=== PATIENT | male | born 1995 | race Caucasian/White ===

== ENCOUNTER 2018-08-04 01:44 | Outpatient (RCR) | payer MEDICAID, SELFPAY ==
[2018-08-04] MEDS: Normal Saline Flush 10 ML SYR IVP (12:00)
[2018-08-04] MEDS: Heparin 500 UNITS/5 ML SYRINGE IV (12:05)
[2018-08-04 12:17] LABS: Absolute Basophil Count 0.03 k/cumm (0.0-0.2); Absolute Eosinophil Count 0.26 k/cumm (0.0-0.7); Absolute Lymphocyte Count 1.29 k/cumm (1.2-3.4); Absolute Monocyte Count 0.43 k/cumm (0.11-0.7); Absolute Neutrophil Count 1.68 k/cumm (1.2-6.7); Basophils % 0.8; HCT 43.6 % (40.0-50.0); HGB 14.8 g/dL (13.5-17.5); Mean Corp. HGB Concentration 33.9 g/dL (32.0-36.0); Mean Corpuscular Hemoglobin 31.6 pg (27.0-33.0); Mean Corpuscular Volume 93.2 fL (80-95); Mean Platelet Volume 8.9 fL (8.0-11.0); Monocytes % 11.7; Neutrophils % 45.5; Platelet Count 221 x1000/uL (130-400); RBC 4.68 m/cumm (4.50-6.00); White Blood Cell Count 3.69 k/cumm (4.4-10.8)
[2018-08-04 12:27] LABS: ALT 38 U/L (12-78); AST 31 U/L (15-37); Albumin 4.2 g/dL (3.4-5.0); Alkaline Phosphatase 95 U/L (46-116); Anion Gap 6.6 mmol/L (3-11); BUN 12 mg/dL (7-18); Bilirubin, Total 0.7 mg/dL (0.2-1.0); CO2 28.4 mmol/L (21.0-32.0); CREATININE 0.79 mg/dL (0.70-1.30); Calcium 8.8 mg/dL (8.5-10.1); Chloride 106 mmol/L (98-107); Glucose 99 mg/dL (70-100); Potassium 3.9 mmol/L (3.5-5.1); Sodium 141 mmol/L (136-145); Total Protein 7.8 g/dL (6.4-8.2)
[2018-08-04 14:10] LABS: Creatine Kinase 85 U/L (39-308)
== END 2018-08-07 23:59 | disposition home or self-care (01) ==
LOC: INF 01:44
PROVIDERS: PCP Pediatrics; Visit Provider Internal Medicine Medical Oncology
DX: C49.9 Malignant neoplasm of connective and soft tissue, unspecified (principal); Z45.2 Encounter for adjustment and management of vascular access device
CPT/HCPCS: 36591; 80053; 82550; 85025

== ENCOUNTER 2018-12-01 09:07 | Outpatient (RCR) | payer BC, MEDICARE, MEDICAID, SELFPAY ==
[2018-12-01 09:49] LABS: Abs Immature Grans 0.02 k/cumm (0.0-0.09); Absolute Basophil Count 0.03 k/cumm (0.0-0.2); Absolute Eosinophil Count 0.08 k/cumm (0.0-0.7); Absolute Lymphocyte Count 0.99 k/cumm (1.2-3.4); Absolute Monocyte Count 1.15 k/cumm (0.11-0.7); Basophils % 0.3; Eosinophils % 0.7; HGB 14.3 g/dL (13.5-17.5); Immature Grans % 0.2; Lymphocytes % 8.7; Mean Corpuscular Hemoglobin 30.6 pg (27.0-33.0); Mean Corpuscular Volume 89.9 fL (80-95); Mean Platelet Volume 8.9 fL (8.0-11.0); Monocytes % 10.1; Platelet Count 219 x1000/uL (130-400); RBC 4.67 m/cumm (4.50-6.00); RBC Distribution Width 12.3 % (11.8-14.1); White Blood Cell Count 11.43 k/cumm (4.4-10.8)
[2018-12-01] MEDS: Normal Saline Flush 10 ML SYR IVP (09:51)
[2018-12-01] MEDS: Heparin 500 UNITS/5 ML SYRINGE IV (09:51)
[2018-12-01 09:53] LABS: Absolute Neutrophil Count 9.14 k/cumm (1.2-6.7)
[2018-12-01 10:02] LABS: ALT 34 U/L (12-78); AST 33 U/L (15-37); Albumin 3.6 g/dL (3.4-5.0); Alkaline Phosphatase 111 U/L (46-116); Anion Gap 10.2 mmol/L (3-11); BUN 10 mg/dL (7-18); Bilirubin, Total 1.4 mg/dL (0.2-1.0); CO2 26.8 mmol/L (21.0-32.0); CREATININE 0.81 mg/dL (0.70-1.30); Calcium 9.3 mg/dL (8.5-10.1); Chloride 98 mmol/L (98-107); Glucose 95 mg/dL (70-100); Potassium 3.9 mmol/L (3.5-5.1); Sodium 135 mmol/L (136-145); Total Protein 8.2 g/dL (6.4-8.2)
== END 2018-12-08 23:59 | disposition home or self-care (01) ==
LOC: INF 09:07
PROVIDERS: PCP Pediatrics; Visit Provider Internal Medicine Hematology & Oncology
DX: C49.9 Malignant neoplasm of connective and soft tissue, unspecified (principal); Z45.2 Encounter for adjustment and management of vascular access device
CPT/HCPCS: 36591; 80053; 85025

== ENCOUNTER 2018-12-05 17:46 | Outpatient (REF) | payer BC, MEDICARE, MEDICAID, SELFPAY | END 2018-12-05 18:06 | LOC: LBN 17:46 | PROVIDERS: PCP Pediatrics; Visit Provider Pediatrics | DX: L03.116 Cellulitis of left lower limb (principal) | CPT/HCPCS: 87077; 87070; 87205 ==

== ENCOUNTER 2018-12-12 13:53 | Outpatient (REF) | payer BC, MEDICARE, MEDICAID, SELFPAY ==
[2018-12-12 14:23] LABS: Abs Immature Grans 0.05 k/cumm (0.0-0.09); Absolute Basophil Count 0.06 k/cumm (0.0-0.2); Absolute Lymphocyte Count 1.89 k/cumm (1.2-3.4); Absolute Monocyte Count 0.35 k/cumm (0.11-0.7); Absolute Neutrophil Count 4.06 k/cumm (1.2-6.7); Basophils % 0.9; Eosinophils % 4.5; HCT 39.5 % (40.0-50.0); HGB 12.9 g/dL (13.5-17.5); Immature Grans % 0.7; Lymphocytes % 28.2; Mean Corp. HGB Concentration 32.7 g/dL (32.0-36.0); Mean Corpuscular Hemoglobin 30.4 pg (27.0-33.0); Mean Corpuscular Volume 93.2 fL (80-95); Mean Platelet Volume 8.6 fL (8.0-11.0); Monocytes % 5.2; Neutrophils % 60.5; RBC 4.24 m/cumm (4.50-6.00); RBC Distribution Width 12.5 % (11.8-14.1); White Blood Cell Count 6.71 k/cumm (4.4-10.8)
[2018-12-12 14:28] LABS: Platelet Count 591 x1000/uL (130-400)
[2018-12-12 14:32] LABS: ALT 34 U/L (12-78); AST 31 U/L (15-37); Albumin 3.6 g/dL (3.4-5.0); Alkaline Phosphatase 123 U/L (46-116); Anion Gap 10.4 mmol/L (3-11); BUN 9 mg/dL (7-18); Bilirubin, Total 0.1 mg/dL (0.2-1.0); C-Reactive Protein 0.71 mg/dL (0.0-0.3); CO2 29.6 mmol/L (21.0-32.0); Calcium 9.2 mg/dL (8.5-10.1); Chloride 102 mmol/L (98-107); Glucose 108 mg/dL (70-100); Sodium 142 mmol/L (136-145); Total Protein 7.9 g/dL (6.4-8.2)
== END 2018-12-12 14:13 ==
LOC: LBN 13:53
PROVIDERS: PCP Pediatrics; Visit Provider Orthopaedic Surgery Adult Reconstructive Orthopaedic Surgery
DX: L03.116 Cellulitis of left lower limb (principal); L02.416 Cutaneous abscess of left lower limb; C49.4 Malignant neoplasm of connective and soft tissue of abdomen; Z79.2 Long term (current) use of antibiotics; Z92.21 Personal history of antineoplastic chemotherapy; R91.8 Other nonspecific abnormal finding of lung field
CPT/HCPCS: 80053; 85025; 86140

== ENCOUNTER 2018-12-19 12:41 | Outpatient (REF) | payer BC, MEDICARE, MEDICAID, SELFPAY ==
[2018-12-19 14:32] LABS: Absolute Basophil Count 0.07 k/cumm (0.0-0.2); Absolute Eosinophil Count 0.18 k/cumm (0.0-0.7); Absolute Lymphocyte Count 1.63 k/cumm (1.2-3.4); Absolute Monocyte Count 0.36 k/cumm (0.11-0.7); Absolute Neutrophil Count 1.92 k/cumm (1.2-6.7); Basophils % 1.7; Eosinophils % 4.3; HCT 40.3 % (40.0-50.0); HGB 13.1 g/dL (13.5-17.5); Lymphocytes % 39.2; Mean Corp. HGB Concentration 32.5 g/dL (32.0-36.0); Mean Corpuscular Hemoglobin 30.1 pg (27.0-33.0); Mean Corpuscular Volume 92.6 fL (80-95); Mean Platelet Volume 9.1 fL (8.0-11.0); Monocytes % 8.7; Neutrophils % 46.1; RBC 4.35 m/cumm (4.50-6.00); RBC Distribution Width 12.9 % (11.8-14.1); White Blood Cell Count 4.16 k/cumm (4.4-10.8)
[2018-12-19 14:48] LABS: Platelet Count 330 x1000/uL (130-400)
[2018-12-19 15:18] LABS: ALT 48 U/L (12-78); AST 41 U/L (15-37); Albumin 3.9 g/dL (3.4-5.0); Alkaline Phosphatase 119 U/L (46-116); Anion Gap 6.9 mmol/L (3-11); BUN 12 mg/dL (7-18); Bilirubin, Total 0.2 mg/dL (0.2-1.0); C-Reactive Protein 0.36 mg/dL (0.0-0.3); CO2 31.1 mmol/L (21.0-32.0); CREATININE 0.73 mg/dL (0.70-1.30); Calcium 9.6 mg/dL (8.5-10.1); Chloride 103 mmol/L (98-107); Glucose 89 mg/dL (70-100); Potassium 4.3 mmol/L (3.5-5.1); Sodium 141 mmol/L (136-145); Total Protein 8.1 g/dL (6.4-8.2)
== END 2018-12-19 13:01 ==
LOC: LBN 12:41
PROVIDERS: PCP Pediatrics; Visit Provider Internal Medicine Infectious Disease
DX: L03.116 Cellulitis of left lower limb (principal); L02.416 Cutaneous abscess of left lower limb
CPT/HCPCS: 80053; 85025; 86140

== ENCOUNTER 2019-01-02 15:33 | Outpatient (REF) | payer BC, MEDICARE, MEDICAID, SELFPAY ==
[2019-01-02 16:19] LABS: ALT 28 U/L (12-78); AST 30 U/L (15-37); Albumin 3.9 g/dL (3.4-5.0); Alkaline Phosphatase 112 U/L (46-116); Anion Gap 11.5 mmol/L (3-11); BUN 11 mg/dL (7-18); Bilirubin, Total 0.3 mg/dL (0.2-1.0); CO2 27.5 mmol/L (21.0-32.0); CREATININE 0.69 mg/dL (0.70-1.30); Calcium 8.5 mg/dL (8.5-10.1); Chloride 102 mmol/L (98-107); Glucose 98 mg/dL (70-100); Potassium 4.1 mmol/L (3.5-5.1); Sodium 141 mmol/L (136-145); Total Protein 7.9 g/dL (6.4-8.2)
[2019-01-02 17:12] LABS: Abs Immature Grans 0.01 k/cumm (0.0-0.09); Absolute Basophil Count 0.04 k/cumm (0.0-0.2); Absolute Lymphocyte Count 1.95 k/cumm (1.2-3.4); Absolute Monocyte Count 0.46 k/cumm (0.11-0.7); Absolute Neutrophil Count 2.08 k/cumm (1.2-6.7); Basophils % 0.8; Eosinophils % 8.1; Immature Grans % 0.2; Lymphocytes % 39.5; Mean Corp. HGB Concentration 33.3 g/dL (32.0-36.0); Mean Corpuscular Hemoglobin 29.9 pg (27.0-33.0); Mean Corpuscular Volume 89.6 fL (80-95); Mean Platelet Volume 9.6 fL (8.0-11.0); Monocytes % 9.3; Neutrophils % 42.1; Platelet Count 265 x1000/uL (130-400); RBC 4.69 m/cumm (4.50-6.00); RBC Distribution Width 12.9 % (11.8-14.1); White Blood Cell Count 4.94 k/cumm (4.4-10.8)
== END 2019-01-02 15:53 ==
LOC: LBN 15:33
PROVIDERS: PCP Pediatrics; Visit Provider Internal Medicine Infectious Disease
DX: L03.116 Cellulitis of left lower limb (principal); L02.416 Cutaneous abscess of left lower limb
CPT/HCPCS: 80053; 85025; 86140

== ENCOUNTER 2019-01-09 13:40 | Outpatient (REF) | payer BC, MEDICARE, MEDICAID, SELFPAY ==
[2019-01-09 14:42] LABS: Absolute Basophil Count 0.03 k/cumm (0.0-0.2); Absolute Eosinophil Count 0.32 k/cumm (0.0-0.7); Absolute Lymphocyte Count 1.71 k/cumm (1.2-3.4); Absolute Monocyte Count 0.54 k/cumm (0.11-0.7); Absolute Neutrophil Count 2.14 k/cumm (1.2-6.7); Basophils % 0.6; Eosinophils % 6.8; HCT 40.3 % (40.0-50.0); HGB 13.7 g/dL (13.5-17.5); Lymphocytes % 36.1; Mean Corpuscular Hemoglobin 30.2 pg (27.0-33.0); Mean Corpuscular Volume 88.8 fL (80-95); Mean Platelet Volume 9.1 fL (8.0-11.0); Monocytes % 11.4; Neutrophils % 45.1; Platelet Count 250 x1000/uL (130-400); RBC 4.54 m/cumm (4.50-6.00); RBC Distribution Width 12.8 % (11.8-14.1); White Blood Cell Count 4.74 k/cumm (4.4-10.8)
[2019-01-09 15:40] LABS: ALT 29 U/L (12-78); AST 26 U/L (15-37); Alkaline Phosphatase 99 U/L (46-116); Anion Gap 8.9 mmol/L (3-11); BUN 10 mg/dL (7-18); Bilirubin, Total 0.3 mg/dL (0.2-1.0); C-Reactive Protein 0.27 mg/dL (0.0-0.3); CO2 29.1 mmol/L (21.0-32.0); CREATININE 0.67 mg/dL (0.70-1.30); Calcium 9.1 mg/dL (8.5-10.1); Chloride 104 mmol/L (98-107); Glucose 93 mg/dL (70-100); Potassium 3.9 mmol/L (3.5-5.1); Sodium 142 mmol/L (136-145); Total Protein 7.5 g/dL (6.4-8.2)
== END 2019-01-09 14:00 ==
LOC: LBN 13:40
PROVIDERS: PCP Pediatrics; Visit Provider Internal Medicine Infectious Disease
DX: L03.116 Cellulitis of left lower limb (principal); L02.416 Cutaneous abscess of left lower limb; R91.8 Other nonspecific abnormal finding of lung field; Z79.2 Long term (current) use of antibiotics; Z92.21 Personal history of antineoplastic chemotherapy
CPT/HCPCS: 80053; 85025; 86140

== ENCOUNTER 2019-01-16 12:36 | Outpatient (REF) | payer BC, MEDICARE, MEDICAID, SELFPAY ==
[2019-01-16 14:21] LABS: Abs Immature Grans 0.01 k/cumm (0.0-0.09); Absolute Basophil Count 0.03 k/cumm (0.0-0.2); Absolute Eosinophil Count 0.22 k/cumm (0.0-0.7); Absolute Lymphocyte Count 1.55 k/cumm (1.2-3.4); Absolute Monocyte Count 0.49 k/cumm (0.11-0.7); Absolute Neutrophil Count 1.88 k/cumm (1.2-6.7); Basophils % 0.7; Eosinophils % 5.3; HCT 39.6 % (40.0-50.0); HGB 13.3 g/dL (13.5-17.5); Immature Grans % 0.2; Lymphocytes % 37.1; Mean Corp. HGB Concentration 33.6 g/dL (32.0-36.0); Mean Corpuscular Volume 89.2 fL (80-95); Mean Platelet Volume 9.5 fL (8.0-11.0); Monocytes % 11.7; Platelet Count 239 x1000/uL (130-400); RBC 4.44 m/cumm (4.50-6.00); RBC Distribution Width 13.2 % (11.8-14.1); White Blood Cell Count 4.18 k/cumm (4.4-10.8)
[2019-01-16 14:35] LABS: ALT 28 U/L (12-78); AST 33 U/L (15-37); Albumin 3.9 g/dL (3.4-5.0); Alkaline Phosphatase 100 U/L (46-116); Anion Gap 8.8 mmol/L (3-11); BUN 11 mg/dL (7-18); Bilirubin, Total 0.3 mg/dL (0.2-1.0); C-Reactive Protein 0.59 mg/dL (0.0-0.3); CO2 28.2 mmol/L (21.0-32.0); CREATININE 0.64 mg/dL (0.70-1.30); Calcium 8.7 mg/dL (8.5-10.1); Chloride 103 mmol/L (98-107); Glucose 117 mg/dL (70-100); Potassium 3.9 mmol/L (3.5-5.1); Sodium 140 mmol/L (136-145); Total Protein 7.3 g/dL (6.4-8.2)
== END 2019-01-16 12:56 ==
LOC: LBN 12:36
PROVIDERS: PCP Pediatrics; Visit Provider Internal Medicine Infectious Disease
DX: L03.116 Cellulitis of left lower limb (principal); L02.416 Cutaneous abscess of left lower limb; Z79.2 Long term (current) use of antibiotics; Z92.21 Personal history of antineoplastic chemotherapy; R91.8 Other nonspecific abnormal finding of lung field
CPT/HCPCS: 80053; 85025; 86140

== ENCOUNTER 2019-05-29 01:19 | Outpatient (RCR) | payer BC, MEDICARE, MEDICAID, SELFPAY ==
[2019-05-25] MEDS: Normal Saline Flush 10 ML SYR IVP (13:36)
[2019-05-25 13:57] LABS: RBC 4.44 m/cumm (4.50-6.00)
[2019-05-25 13:58] LABS: HCT 39.2 % (40.0-50.0); HGB 13.5 g/dL (13.5-17.5); Mean Corp. HGB Concentration 34.4 g/dL (32.0-36.0); Mean Corpuscular Hemoglobin 30.4 pg (27.0-33.0); Mean Corpuscular Volume 88.3 fL (80-95); RBC Distribution Width 19.3 % (11.8-14.1)
[2019-05-25 14:17] LABS: ALT 166 U/L (12-78); AST 52 U/L (15-37); Albumin 3.1 g/dL (3.4-5.0); Alkaline Phosphatase 203 U/L (46-116); Anion Gap 10.4 mmol/L (3-11); BUN 20 mg/dL (7-18); Bilirubin, Total 0.4 mg/dL (0.2-1.0); CO2 26.6 mmol/L (21.0-32.0); Calcium 9.1 mg/dL (8.5-10.1); Chloride 102 mmol/L (98-107); Glucose 114 mg/dL (70-100); Potassium 4.1 mmol/L (3.5-5.1); Sodium 139 mmol/L (136-145); Total Protein 6.7 g/dL (6.4-8.2)
[2019-05-25 14:35] LABS: Platelet Count 43 x1000/uL (130-400)
[2019-05-25 14:37] LABS: Anisocytosis 1+; Diff Comment Manual Differential; Macrocytosis 1+; Polychromasia Present
[2019-05-25 14:38] LABS: Absolute Lymphocyte Count 0.93 k/cumm (1.2-3.4); Absolute Monocyte Count 0.21 k/cumm (0.11-0.7); Absolute Neutrophil Count 5.78 k/cumm (1.2-6.7); White Blood Cell Count 7.13 k/cumm (4.4-10.8)
[2019-05-25 14:43] LABS: Nucleated RBC 41 /100WBC
[2019-05-29] MEDS: Normal Saline Flush 10 ML SYR IVP (10:21)
[2019-05-29] MEDS: Heparin 500 UNITS/5 ML SYRINGE IV (10:21)
[2019-05-29 10:27] LABS: Abs Immature Grans 1.97 k/cumm (0.0-0.09); HCT 39.5 % (40.0-50.0); HGB 13.2 g/dL (13.5-17.5); Mean Corp. HGB Concentration 33.4 g/dL (32.0-36.0); Mean Corpuscular Hemoglobin 30.4 pg (27.0-33.0); Mean Platelet Volume 10.9 fL (8.0-11.0); RBC 4.34 m/cumm (4.50-6.00); RBC Distribution Width 20.9 % (11.8-14.1); White Blood Cell Count 20.61 k/cumm (4.4-10.8)
[2019-05-29 10:40] LABS: ALT 161 U/L (12-78); AST 52 U/L (15-37); Albumin 3.1 g/dL (3.4-5.0); Alkaline Phosphatase 246 U/L (46-116); BUN 18 mg/dL (7-18); Bilirubin, Total 0.3 mg/dL (0.2-1.0); CREATININE 0.54 mg/dL (0.70-1.30); Calcium 8.6 mg/dL (8.5-10.1); Chloride 102 mmol/L (98-107); Glucose 150 mg/dL (70-100); Potassium 3.4 mmol/L (3.5-5.1); Sodium 139 mmol/L (136-145); Total Protein 6.6 g/dL (6.4-8.2)
[2019-05-29 10:54] LABS: Absolute Lymphocyte Count 3.09 k/cumm (1.2-3.4); Absolute Neutrophil Count 14.84 k/cumm (1.2-6.7); Platelet Count 114 x1000/uL (130-400)
[2019-05-29 10:55] LABS: Absolute Monocyte Count 1.24 k/cumm (0.11-0.7); Nucleated RBC 4 /100WBC
[2019-05-29 10:56] LABS: Anisocytosis 2+; Diff Comment Manual Differential; Hypochromasia 2+; Polychromasia Present
== END 2019-06-07 23:59 | disposition home or self-care (01) ==
LOC: INF 01:19
PROVIDERS: PCP Pediatrics; Visit Provider Internal Medicine Hematology & Oncology
DX: C49.22 Malignant neoplasm of connective and soft tissue of left lower limb, including hip (principal); Z45.2 Encounter for adjustment and management of vascular access device
CPT/HCPCS: 36591; 80053; 85025

== ENCOUNTER 2019-06-13 17:29 | Observation (INO) | payer BC, MEDICARE, MEDICAID, SELFPAY ==
[2019-06-13] VITALS (34 sets, daily range): BP systolic 118–134; BP diastolic 57–82; PULSE 116–143; RESP 15–44; TEMP 37.1–37.7; O2SAT 92–95
--- NOTE | 2019-06-13 18:41 | ED.GENADUL_ITS ---
Discharge Plan Disposition Patient Disposition: [facility] INPATIENT Condition: Poor Discharge Details Chief Complaint: Fever Clinical Impression: Tachycardia, Fever, Metastasis Primary Care Provider: Eliseo Barraza ED Provider: Prema Pope Home Meds and New Rx's Prescriptions: No Action acetaminophen 500 mg tablet 1,000 mg PO TID PRNRF: 0 ondansetron HCl 8 mg tablet 8 mg PO BID RF: 0 fluconazole 200 mg Tablet 200 mg PO DAILY RF: 0 dexamethasone 1 mg Tablet 1 mg PO BID RF: 0 memantine 10 mg Tablet 10 mg PO BID RF: 0 Medical Decision Making Patient is a 24 year old male, accompanied by his mother, with c/c of fever. 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 Patient is currently undergoing chemotherapy, receives treatment every 21 days. Last received chemo one week ago. When labs were checked last patient was not noted to be neutropenic. He rerports that this evening he felt warm but otherwise at baseline. States that he has been fatigued but that this is baseline and unchaged. Denies KEYES, visual changes, back pain, CP, SOB, abdominal pain, change in urinary or bowel habits. Last known infection was to site of AKA, reports no pain in this area at this time, has not noted chagne in skin to suggest infection. Last infection to this area was in December 2018. Mother contacted oncology at [facility] who advised that they seek care urgently with temp over 100.4. Concerned for neutropenic fever. Patient is without evidence of infection on exam. Appears otherwise well. Lungs clear, abdomen benign, no nuchal rigiditiy. Patient tachycardic at 117, reports feeling nervous. Temp 37.7. Will give tylenol as he reports he is feeling warm. CXR reviewed by radiologist: FINDINGS: Tubes, catheters and devices: Port-A-Cath in place with the tip in the superior vena cava. Lungs: Innumerable large bilateral mass lesions involving both lung claros. Lung volumes are low. Pleural space: Unremarkable. No pleural effusion. No pneumothorax. Heart/Mediastinum: Unremarkable. No cardiomegaly. Bones/joints: Unremarkable. IMPRESSION: Multiple large mass lesions involving both lung claros consistent with metastatic disease. Reevaluated the patient after labs and imaging results returned. He is noted to have a BP in the 130s with O2 at 93%. He denies dyspnea, pleuritic pain, calf pain. However, concerned for possible PE, will obtain CT. No calf tenderness, no edema in RLE. Labs significant for platelet count 114, this is baseline for the patient. WBC 6.85. Neutrophiles 58%. Anion gap 12.7. AST, ALT and alk phos elevated, this is typical for the patient. UA significant ofr trace blood. No evidence of infection. CT reviewed by radiologist: FINDINGS: Tubes, catheters and devices: Left PICC line in place with the tip in the right atrium. Consider repositioning the tip of the catheter. Pulmonary arteries: No evidence for pulmonary embolus. Aorta: Unremarkable. No aortic aneurysm. No aortic dissection. Lungs: Innumerable bilateral mass lesions filling the chest cavity. Several lesions measure greater than 10 cm. Pleural space: No pneumothorax. No pleural effusion. Heart: Unremarkable. No cardiomegaly. No pericardial effusion. Liver: Hepatic steatosis. Spleen: Mass lesions involving the spleen consistent with metastatic disease. Lymph nodes: Unremarkable. No enlarged lymph nodes. Bones/joints: Unremarkable. No acute fracture. Soft tissues: Gynecomastia.. IMPRESSION: 1. Extensive metastatic disease involving the lungs and spleen. 2. No evidence for pulmonary emboli. 3. Consider repositioning the central catheter tip. Consulted with Dr. Chan at [facility] who advised admission. She advised holding off on antibiotics for now. Advised obtaining urine culture, blood culture and viral swab. She advised admission and continuing to monitor his tachycardia, continuing with IV fluids. Images pushed to [facility]. EKG reviewed by Dr. Fisher. Sinus tachycardia with rate 126, no evidence of ischemic changes. Spoke with patient regarding admission, he is upset about this but agreeable. He is receiving further fluids. Continues to be tachycardic in the 120s. Plan to consult with hospitalist. Spoke with Dr. Steele who agrees to admission for continued monitoring and Iv hydration. HPI General Mode of arrival: ambulatory (uses crutches, s/p left AKA) . Date/Time Provider Initiated Documentation: 06/13/19 18:40 . Limitations to Documentation: no limitations . Information obtained by: patient, family (accompanied by mother) and RN notes reviewed . History of Present Illness 24 year old M presents to the emergency department with the chief complaint of fever, described as mild (report t max 100.8), Patient started experiencing this hour(s) and it has been constant. No relieving factors improve symptom(s), No exacerbating factors reported . Patient notes fever/chills (feels warm) and other (fatigue); denies confusion, chest pain, cough, diaphoresis, headaches, loss of appetite, malaise, nausea/vomiting, rash, seizure, shortness of breath, syncope and weakness. Patient did receive the following treatments prior to arrival, none Related Data Home Medications Medication Instructions Recorded Confirmed acetaminophen 500 mg tablet 1,000 mg PO TID PRN tab 08/09/18 06/13/19 ondansetron HCl 8 mg tablet 8 mg PO BID 04/11/19 06/13/19 dexamethasone 1 mg PO BID 06/13/19 06/13/19 fluconazole 200 mg PO DAILY 06/13/19 06/13/19 memantine 10 mg PO BID 06/13/19 06/13/19 Allergies Allergy/AdvReac Type Severity Reaction Status Date / Time shellfish derived Allergy Intermediate Hives Verified 06/13/19 17:41 prochlorperazine AdvReac jittery Verified 06/13/19 17:41 General Stated Complaint: Fever CONRAD: 3 Review of Systems Constitutional Reports as per HPI, Denies chills, Reports fatigue, Denies fever(s), Denies headache(s), Denies lethargy and Denies poor appetite Eyes Denies change in vision ENT Denies dizziness and Denies headache(s) Cardiovascular Reports as per HPI, Denies chest pain, Denies pedal edema, Denies radiating jaw, neck or arm pain, Denies palpitations, Denies dyspnea and Denies dyspnea on exertion Respiratory Reports as per HPI, Denies chest congestion, Denies cough, Denies pain on inspiration, Denies pain with cough, Denies dyspnea, Denies dyspnea on exertion and Denies wheezing Gastrointestinal Reports as per HPI, Denies abdominal pain, Denies diarrhea, Denies nausea and Denies vomiting Genitourinary Denies system reviewed and no additional complaints, except as docu (denies change in urinary habits) Musculoskeletal Reports as per HPI and Denies back pain Integumentary/Breasts Reports as per HPI and Denies rash Neurologic Reports as per HPI, Denies dizziness and Denies headache(s) Endocrine Reports fatigue and Denies palpitations Allergic/Immunologic Denies wheezing [facility] Medical History Achilles tendon contracture (Acute) Pulmonary nodules (Acute) Synovial sarcoma (Acute 12/12/14) Surgical History H/O arthroscopic knee surgery (Chronic) History of lung biopsy (Acute) Family History Mother Non-Hodgkin lymphoma in remission Social History Smoking/Tobacco Use Status: Never Drug use: Never Adopted: No Caregiver/Support person: Yes Foster care: No Household members: family Housing: house Number of Children: 0 Sexually active: No Do you think of yourself as: straight/heterosexual Exam Const General: cooperative, healthy appearing, comfortable, no acute distress and well developed Nutritional Appearance: well nourished and overweight Orientation: alert, awake and oriented x3 HENMT Head: normal to inspection Ears: hearing grossly normal bilaterally Mouth: moist mucous membranes Chest Chest: normal inspection of the chest, normal palpation of entire chest wall and no crepitus Resp Effort & Inspection: normal respiratory effort, able to speak in complete sentences and no respiratory distress Auscultation: clear to auscultation bilaterally, no rales, no rhonchi and no wheezes Cardio Rate: regular rate Rhythm: regular rhythm Heart Sounds: S1 normal and S2 normal GI Inspection: normal to inspection, no edema, non-distended and obesity Palpation: soft, no hepatosplenomegaly, not firm, no guarding, not rigid and nontender Auscultation: normal bowel sounds Back/Spine/Pelvis Back: no CVA tenderness Thoracic/Lumbar Spine: thoracic and lumbar spine normal to inspection Skin General skin exam: no rashes or lesions noted Trauma: no lacerations or abrasions Neuro General: alert, awake and oriented x3 Cognition: normal cognition Speech: speech normal Gait: normal gait Extrem General: normal to inspection, normal capillary refill, no pedal edema, no calf tenderness and other (patient s/p AKA left side, stump without findings of infection) Psych Appearance: grossly normal and well kempt Mental Status: mental status grossly normal Speech and Movement: speech and movement normal Course Vital Signs Temperature 37.7 C H 06/13/19 17:37 Pulse 117 H 06/13/19 17:37 Respiratory Rate 16 06/13/19 17:37 Blood Pressure 118/73 06/13/19 17:37 Pulse Oximetry 95 06/13/19 17:37 Temperature 37.7 C H 06/13/19 17:37 Temperature Source Oral 06/13/19 17:37 Pulse 117 H 06/13/19 17:37 Respiratory Rate 16 06/13/19 17:37 Respiratory Effort Non-Labored 06/13/19 17:37 Blood Pressure 118/73 06/13/19 17:37 Blood Pressure Position Sitting 06/13/19 17:37 Pulse Oximetry 95 06/13/19 17:37 Oxygen Delivery Method Room Air 06/13/19 17:37 Oxygen Flow Rate 0 06/13/19 17:37 Pain Level 0 06/13/19 17:37
[2019-06-13 19:41] LABS: Lactate-non-spesis 1.4 mmol/l (0.6-1.4)
[2019-06-13] MEDS: Normal Saline 1,000 ML 1000 ML IV ×2 (19:42→22:21)
[2019-06-13 19:46] LABS: Abs Immature Grans 0.52 k/cumm (0.0-0.09); HCT 39.1 % (40.0-50.0); HGB 13.4 g/dL (13.5-17.5); Mean Corp. HGB Concentration 34.3 g/dL (32.0-36.0); Mean Corpuscular Hemoglobin 31.9 pg (27.0-33.0); Mean Corpuscular Volume 93.1 fL (80-95); Mean Platelet Volume 10.4 fL (8.0-11.0); RBC Distribution Width 22.7 % (11.8-14.1)
--- NOTE | 2019-06-13 19:50 | DI.RAD_ITS ---
SYMPTOM/DIAGNOSIS: FEVER, H/O LUNG BX AND CARCINOMA PA AND LATERAL CHEST: There are no prior comparison exams. The patient has a history of synovial cell carcinoma. There are numerous pulmonary metastases. The lungs are not well inflated. No effusions are seen. The heart size is within normal limits. A port is noted over the left upper chest with the tip in the right atrium. IMPRESSION: Numerous bilateral pulmonary metastases.
[2019-06-13] MEDS: Acetaminophen 500 MG TAB 1000 MG PO (20:06)
[2019-06-13 20:08] LABS: ALT 147 U/L (12-78); AST 46 U/L (15-37); Albumin 3.5 g/dL (3.4-5.0); Alkaline Phosphatase 219 U/L (46-116); Anion Gap 12.7 mmol/L (3-11); BUN 17 mg/dL (7-18); Bilirubin, Total 0.4 mg/dL (0.2-1.0); CO2 24.3 mmol/L (21.0-32.0); CREATININE 0.68 mg/dL (0.70-1.30); Calcium 8.4 mg/dL (8.5-10.1); Chloride 99 mmol/L (98-107); Glucose 100 mg/dL (70-100); Potassium 3.8 mmol/L (3.5-5.1); Sodium 136 mmol/L (136-145); Total Protein 6.7 g/dL (6.4-8.2)
--- NOTE | 2019-06-13 20:32 | DI.VRAD_ITS ---
EXAM: XR Chest, 2 Views EXAM DATE/TIME: 06/13/2019 6:41 PM CLINICAL HISTORY: 24 years old, male; Fever; Prior surgery; Surgery type: Biopsy; Patient HX: HX of synovial sarcoma metastases to lungs TECHNIQUE: Imaging protocol: XR of the chest, 2 views. COMPARISON: No relevant prior studies available. FINDINGS: Tubes, catheters and devices: Port-A-Cath in place with the tip in the superior vena cava. Lungs: Innumerable large bilateral mass lesions involving both lung claros. Lung volumes are low. Pleural space: Unremarkable. No pleural effusion. No pneumothorax. Heart/Mediastinum: Unremarkable. No cardiomegaly. Bones/joints: Unremarkable. IMPRESSION: Multiple large mass lesions involving both lung claros consistent with metastatic disease. Dictated and Authenticated by: Kassandra Dyer MD. Ordering:KRYSTA Lloyd MD
[2019-06-13 20:35] LABS: Absolute Monocyte Count 1.37 k/cumm (0.11-0.7); Absolute Neutrophil Count 3.97 k/cumm (1.2-6.7); White Blood Cell Count 6.85 k/cumm (4.4-10.8)
[2019-06-13 20:40] LABS: Absolute Lymphocyte Count 1.37 k/cumm (1.2-3.4); Atypical Lymphocytes % 2; Platelet Count 114 x1000/uL (130-400)
[2019-06-13 20:41] LABS: Nucleated RBC 4 /100WBC
[2019-06-13 20:42] LABS: Anisocytosis 3+; Howell-Jolly Bodies Present; Polychromasia Present
[2019-06-13 20:43] LABS: Diff Comment Manual Differential
[2019-06-13 21:09] LABS: Bilirubin Negative (Negative); Blood Trace-lysed (Negative); Clarity Clear (Clear); Glucose Negative (Negative); Ketones Negative (Negative); Leukocyte Esterase Negative (Negative); Nitrite Negative (Negative); Urobilinogen 0.2 EU/dL (Up TO 0.2)
--- NOTE | 2019-06-13 21:16 | DI.CT_ITS ---
SYMPTOM/DIAGNOSIS: FEVER, TACHYCARDIAC, H/O CANCER PE CHEST CT: CT angiography was performed with multi slice acquisition and multi planar and 3D reconstruction. There are no pulmonary emboli or evidence of aortic dissection. There are innumerable masses seen throughout both lungs. The patient has a history of synovial cell carcinoma. The largest metastatic lesions are seen at the right lung base, measuring nearly 10 cm. in size. The masses show calcification. No pleural or pericardial effusions or adenopathy is seen. No pulmonary infiltrates or pulmonary edema is seen. The liver is enlarged and shows fatty infiltration. There are numerous low density lesions in the spleen, also consistent with metastases. There are numerous enhancing nodules seen around the pancreas. A PICC line is seen with the tip terminating in the upper right atrium. No bony metastases or compression fractures are seen. IMPRESSION: Innumerable lung metastases, greatest at the right lung base. There is also apparent splenic metastases and likely metastases around the spleen.
[2019-06-13 21:40] LABS: Bacteria Negative HPF (Negative); C & S Indicated? No; Casts Negative LPF (Negative); Crystals Negative HPF (Negative); Epithelial Cells Negative HPF (Negative); Mucus Negative (Negative); Other Cells Negative (Negative); RBC 0-2 (0-2); WBC 0-2 HPF (0-5)
[2019-06-13 21:45] LABS: D-Dimer 2721 ng/mlFEU (<500)
--- NOTE | 2019-06-13 22:01 | DI.VRAD_ITS ---
EXAM: CT Angiography Chest With Contrast EXAM DATE/TIME: 06/13/2019 9:17 PM CLINICAL HISTORY: 24 years old, male; Other: Tachycardic, cancer patient TECHNIQUE: Imaging protocol: Axial computed tomographic angiography images of the chest with intravenous contrast using CT angiography protocol. Coronal and sagittal reformatted images were created and reviewed. 3D rendering: MIP reconstructed images were created and reviewed. Radiation optimization: All CT scans at this facility use at least one of these dose optimization techniques: automated exposure control; mA and/or kV adjustment per patient size (includes targeted exams where dose is matched to clinical indication); or iterative reconstruction. Contrast material: OMNIPAQUE 350;Contrast volume: 100 ml;Contrast route: IV; COMPARISON: CR XR CHEST 2V PA LATERAL 04/15/2019 19:44 FINDINGS: Tubes, catheters and devices: Left PICC line in place with the tip in the right atrium. Consider repositioning the tip of the catheter. Pulmonary arteries: No evidence for pulmonary embolus. Aorta: Unremarkable. No aortic aneurysm. No aortic dissection. Lungs: Innumerable bilateral mass lesions filling the chest cavity. Several lesions measure greater than 10 cm. Pleural space: No pneumothorax. No pleural effusion. Heart: Unremarkable. No cardiomegaly. No pericardial effusion. Liver: Hepatic steatosis. Spleen: Mass lesions involving the spleen consistent with metastatic disease. Lymph nodes: Unremarkable. No enlarged lymph nodes. Bones/joints: Unremarkable. No acute fracture. Soft tissues: Gynecomastia.. IMPRESSION: 1. Extensive metastatic disease involving the lungs and spleen. 2. No evidence for pulmonary emboli. 3. Consider repositioning the central catheter tip. Dictated and Authenticated by: Kassandra Dyer MD. Ordering:KRYSTA Lloyd MD
[2019-06-13] MEDS: Dexamethasone 1 MG TAB PO (22:15)
[2019-06-13] MEDS: Memantine 5 MG TAB 10 MG PO (22:43)
--- NOTE | 2019-06-13 23:10 | HPE_ITS ---
Date of service: 06/13/19 Time of Service: 23:10 Assessment and Plan (1) Fever: Current visit: Yes Status: Acute Fever, probably infectious, source not apparent. I have some concern about possible line sepsis given otherwise negative w/u and would consider empiric Vanco pending culture results. However patient is adamant he does not want any antibiotics at this point and will defer. Otherwise will continue usual meds as is. History of Present Illness Chief Complaint: fever Narrative: 24 male with h/o sarcoma, s/p left AKA, metastatic to lung, undergoing chemo (last one week [employer]) -- here with one day of fever. No other symptoms whatsoever except for baseline fatigue. In ER work up failed to reveal a source of fever, cultures were obtained, and patient was not neutropenic. CT chest shows extensive mets, no PE. Oncology advised observe overnight, no antibiotics unless culture +. Review of Systems Review of Systems All systems reviewed & are unremarkable except as noted in HPI and below PFSH Medical History Achilles tendon contracture (Acute) Pulmonary nodules (Acute) Synovial sarcoma (Acute 12/12/14) Surgical History H/O arthroscopic knee surgery (Chronic) History of lung biopsy (Acute) Family History Mother Non-Hodgkin lymphoma in remission Social History Smoking/Tobacco Use Status: Never Drug use: Never Adopted: No Caregiver/Support person: Yes Foster care: No Household members: family Housing: house Number of Children: 0 Sexually active: No Do you think of yourself as: straight/heterosexual Meds Home Medications Medication Instructions Recorded Confirmed Type acetaminophen 500 mg tablet 1,000 mg PO TID PRN tab 08/09/18 06/13/19 History ondansetron HCl 8 mg tablet 8 mg PO BID 04/11/19 06/13/19 History dexamethasone 1 mg PO BID 06/13/19 06/13/19 History fluconazole 200 mg PO DAILY 06/13/19 06/13/19 History memantine 10 mg PO BID 06/13/19 06/13/19 History Allergies Allergy/AdvReac Type Severity Reaction Status Date / Time shellfish derived Allergy Intermediate Hives Verified 06/13/19 17:41 prochlorperazine AdvReac jittery Verified 06/13/19 17:41 Exam Narrative Exam Narrative: Tmax. 37.7, 126/76, pulse 115-135, RR 22. HEENT unremarkable; neck supple; lungs clear; heart tachy/regular, abdomen soft NT; no scrotal redness or swelling; rectal deferred; extr s/p left AKA; skin no rash; neuro non-focal Results Labs : 06/13/19 19:35 06/13/19 19:35 Laboratory Results - last 24 hr 06/13/19 06/13/19 06/13/19 19:35 19:35 19:35 WBC 6.85 RBC 4.20 L Hgb 13.4 L Hct 39.1 L MCV 93.1 MCH 31.9 MCHC 34.3 RDW 22.7 H Plt Count 114 L MPV 10.4 Immature Gran % See Differential Neutrophils % 58.0 Lymphocytes % 18.0 Atypical Lymphs % 2 Monocytes % 20.0 Eosinophils % 0.0 Basophils % 0.0 Metamyelocytes % 2.0 Absolute Neutrophils 3.97 Absolute Lymphocytes 1.37 Absolute Monocytes 1.37 H Absolute Eosinophils 0.00 Absolute Basophils 0.00 Nucleated RBCs 4 Differential Comment Manual differential RBC Morphology See below Polychromasia Present Anisocytosis 3+ [place] Bodies Present D-Dimer Sodium 136 Potassium 3.8 Chloride 99 Carbon Dioxide 24.3 Anion Gap 12.7 H BUN 17 Creatinine 0.68 L Estimated GFR/1.73 m2 >= 60.00 Glucose 100 Lactate 1.4 Calcium 8.4 L Magnesium 2.0 Total Bilirubin 0.4 AST 46 H ALT 147 H Alkaline Phosphatase 219 H Total Protein 6.7 Albumin 3.5 Urine Color Urine Clarity Urine pH Ur Specific [place] Urine Protein Urine Ketones Urine Blood Urine Nitrite Urine Bilirubin Urine Urobilinogen Ur Leukocyte Esterase Urine RBC Urine WBC Ur Epithelial Cells Urine Crystals Urine Bacteria Urine Casts Urine Mucus Urine Other Ur Culture Indicated? Urine Glucose 06/13/19 06/13/19 19:35 20:40 WBC RBC Hgb Hct MCV MCH MCHC RDW Plt Count MPV Immature Gran % Neutrophils % Lymphocytes % Atypical Lymphs % Monocytes % Eosinophils % Basophils % Metamyelocytes % Absolute Neutrophils Absolute Lymphocytes Absolute Monocytes Absolute Eosinophils Absolute Basophils Nucleated RBCs Differential Comment RBC Morphology Polychromasia Anisocytosis [place] Bodies D-Dimer 2721 H Sodium Potassium Chloride Carbon Dioxide Anion Gap BUN Creatinine Estimated GFR/1.73 m2 Glucose Lactate Calcium Magnesium Total Bilirubin AST ALT Alkaline Phosphatase Total Protein Albumin Urine Color Yellow Urine Clarity Clear Urine pH 5.0 Ur Specific [place] 1.020 Urine Protein Negative Urine Ketones Negative Urine Blood Trace-lysed H Urine Nitrite Negative Urine Bilirubin Negative Urine Urobilinogen 0.2 Ur Leukocyte Esterase Negative Urine RBC 0-2 Urine WBC 0-2 Ur Epithelial Cells Negative Urine Crystals Negative Urine Bacteria Negative Urine Casts Negative Urine Mucus Negative Urine Other Negative Ur Culture Indicated? No Urine Glucose Negative Last Vital Signs Temp 37.4 C 06/13/19 20:15 Pulse 117 H 06/13/19 20:16 Resp 22 06/13/19 21:20 BP 126/76 06/13/19 20:16 Pulse Ox 93 L 06/13/19 21:20
[2019-06-14] VITALS (15 sets, daily range): BP systolic 120–143; BP diastolic 70–89; PULSE 103–122; RESP 16–18; TEMP 36.4–38.1; O2SAT 92–94
[2019-06-14] MEDS: Acetaminophen 325 MG TAB 650 MG PO ×4 (03:51→22:21)
[2019-06-14] MEDS: Fluconazole 100 MG TAB 200 MG PO ×2 (03:53→22:20)
[2019-06-14 07:21] LABS: HCT 36.3 % (40.0-50.0); HGB 12.2 g/dL (13.5-17.5); Mean Corp. HGB Concentration 33.6 g/dL (32.0-36.0); Mean Corpuscular Hemoglobin 31.7 pg (27.0-33.0); Mean Corpuscular Volume 94.3 fL (80-95); Mean Platelet Volume 10.2 fL (8.0-11.0); Platelet Count 120 x1000/uL (130-400); RBC 3.85 m/cumm (4.50-6.00); White Blood Cell Count 5.54 k/cumm (4.4-10.8)
--- NOTE | 2019-06-14 08:41 | NUR.NOTE ---
Nursing Note: 0530: pt's mother reports to this RN that pt lost a tooth last week and is scheduled to f/u with dentist next week. per pt's mother, pt has no pain but wonders if the source of his infection could be the broken tooth. CC Tamiko Guevara, RN notified of conversation between RN and pt's mother.
[2019-06-14] MEDS: Dexamethasone 1 MG TAB PO ×2 (08:48→19:44)
[2019-06-14] MEDS: Memantine 5 MG TAB 10 MG PO ×2 (08:48→19:44)
[2019-06-14] MEDS: Normal Saline 1,000 ML 150 ML IV ×3 (08:49→22:21)
--- NOTE | 2019-06-14 10:50 | DI.CT_ITS ---
SYMPTOM/DIAGNOSIS: PERSIST FEVER, H/O CA ABDOMEN AND PELVIC CT: There are no prior comparison exams. The patient apparently has a diagnosis of synovial cell carcinoma. Images were performed from the lung bases through the ischial tuberosities after IV and oral contrast. Innumerable masses are again noted at both lung bases containing calcifications, right greater than left. There is a metastatic lesion in the right paraspinal muscles, at the T 6-7 level. The liver is enlarged and shows diffuse fatty infiltration. No liver metastases are seen. The gallbladder is unremarkable. Splenic lesions consistent with metastases are better seen on the arterial phase images. There are multiple masses near the spleen and tail of the pancreas as well as an enhancing lesion in the head of the pancreas. The gallbladder, adrenals, kidneys, urinary bladder and prostate are unremarkable. There is no ascites. No adenopathy is seen. There is no bowel dilatation or inflammatory change. No bony metastases are visible. There is enhancing soft tissue nodule in the right gluteus jennifer. There is muscular asymmetry with muscular atrophy around the left hip. There is thrombus visible in the common femoral vein and extending into the deep and superficial femoral veins. No thrombus is seen more superiorly. There is a non obstructing stone at the lower pole of the right kidney. IMPRESSION: Multiple metastatic lesions around the pancreas. Soft tissue metastasis in the right gluteus as well as right lower chest paraspinal muscles. Deep venous thrombosis of the common femoral, superficial and deep femoral veins.
[2019-06-14] MEDS: Omnipaque 350 MG/ML 100 ML BTL IJ (10:51)
--- NOTE | 2019-06-14 13:24 | PHARADMIT ---
Admission Pharmacy Clinical Review FEVER (? source) Hx of Sarcoma W/Mets to Lungs (on chemo) Code Status Full Code Current Weight Wgt-81.6 kg Renally Cleared and Narrow Therapeutic Index Meds CrCl~152 mL/min Meds-OK QTc Value / Action Taken QTc-423 NA BP Control, Fever BP-122/85 Tmax- 38.1C Electrolytes reviewed Na- 136 K+3.8 Mag-2.0 DVT Prophylaxis none Opiate Usage / Scheduled Bowel Regimen Ordered No No Plt/SCr for Heparin / Enoxaparin Plts- 120 SCr-0.68 INR for Warfarin NA H/H stable, WBC/Bands H&H- 12.2/36.3 WBC-5.54 Antibiotic appropriateness Diflucan, Cultures and Sensitivities Urine,Blood-pending Surgical ABX d/c within 24 hr na DM control / Insulin Dosing BG- 100 Heart Failure (Check EF%) (OSWALD's, B-Block, Diuretics) none IV to PO Switch No Home Meds Reviewed Yes Home Meds Not Ordered Ordered Comments
[2019-06-14] MEDS: Enoxaparin 80 MG/0.8 ML SYR SC (14:17)
--- NOTE | 2019-06-14 16:47 | W.PM.PROGNOT ---
Date of Service Date of service: 06/14/19 Time of Service: 16:47 Assessment and Plan (1) Fever: Current visit: Yes Status: Acute Exact etiology unknown: - No evidence of active infection by history or exam. - Urinalysis negative, and CXR without infection. - CT of the chest, a/p also negative for infection. - Patient has underlying active, metastatic malignancy, as well as new diagnosis fo DVT, but fever was fairly acute in onset so unsure if this represents actual etiology. - No role for ESR/CRP due to underlying malignancy, and Procalcitonin not indicated under these circumstances. Will continue IVFs and monitor - if patient decompensates low threshold for antibiotics. (2) DVT (deep venous thrombosis): Current visit: Yes Status: Chronic New diagnosis of DVTs in patient with underlying malignancy and limited mobility. - CT of the chest negative for PE at time of admission. - Initiated on therapeutic Enoxaparin. Discussed with Oncology - brain mets are not a contraindication for anticoagulation, and current plan was agreed upon. 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 Metastatic, with known mets to the brain, lungs, spleen, pancreas, right gluteus, right lower chest paraspinal muscles. Currently under treatment with chemo, following with [facility]. (4) DVT prophylaxis: Current visit: Yes Status: Acute On therapeutic anticoagulation as above. Subjective Interval history since last seen: Very pleasant but unfortunate 24 year old man with a history of metastatic Sarcoma, admitted from [facility] Emergency Department on 06/13 with a diagnosis of Fever. 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 Patient has a left sided port in place as well. He presented to the ED with complaints of fevers ongoing for 1 day at home, but no localizing symptoms. Labwork was remarkable for a lack of leukocytosis, mild transaminitis present in the past, and a negative urinalysis. His CXR and CT of the chest were negative for infectious pathology. Case was discussed with Oncology at [facility], with decision to hold off on antibiotic therapy and await further testing and evaluation. This morning Mr. Sommer continues to be febrile and tachycardic. His culture results remain negative. A CT of the abdomen was obtained and showed evidence of DVTs in the common femoral, superficial, and deep femoral veins, but no acute intra-abdominal pathology. CT of the chest at time of admission did not find evidence of PE. The patient reports fatigue, but otherwise remains stable. Exam Narrative Exam Narrative: General: Patient appears comfortable, AAOX3, NAD Neck: Supple CV: Regular, tachycardic, S1S2, No rubs, murmurs, or gallops. Pulmonary: Clear to auscultation bilaterally, no crackles, wheezing, or rhonchi Abdomen: + Bowel Sounds, soft, nontender, nondistended Vascular: 1+ RLE edema. Musculoskeletal: Evidence of LLE AKA. Psych: Normal mood and affect. Objective Objective Clinical Data: Abnormal lab results 06/13/19 06/13/19 06/13/19 Range/Units 19:35 19:35 19:35 RBC 4.20 L (4.50-6.00) m/cumm Hgb 13.4 L (13.5-17.5) g/dL Hct 39.1 L (40.0-50.0) % RDW 22.7 H (11.8-14.1) % Plt Count 114 L (130-400) x1000/uL Absolute Monocytes 1.37 H (0.11-0.7) k/cumm D-Dimer 2721 H (<500) ng/mlFEU Anion Gap 12.7 H (3-11) mmol/L Creatinine 0.68 L (0.70-1.30) mg/dL Calcium 8.4 L (8.5-10.1) mg/dL AST 46 H (15-37) U/L ALT 147 H (12-78) U/L Alkaline Phosphatase 219 H (46-116) U/L Urine Blood (Negative) 06/13/19 06/14/19 Range/Units 20:40 07:06 RBC 3.85 L (4.50-6.00) m/cumm Hgb 12.2 L (13.5-17.5) g/dL Hct 36.3 L (40.0-50.0) % RDW 23.0 H (11.8-14.1) % Plt Count 120 L (130-400) x1000/uL Absolute Monocytes (0.11-0.7) k/cumm D-Dimer (<500) ng/mlFEU Anion Gap (3-11) mmol/L Creatinine (0.70-1.30) mg/dL Calcium (8.5-10.1) mg/dL AST (15-37) U/L ALT (12-78) U/L Alkaline Phosphatase (46-116) U/L Urine Blood Trace-lysed H (Negative) Vital Signs Temperature 37.2 C 06/14/19 13:44 Temperature Source Tympanic 06/14/19 13:44 Pulse 114 H 06/14/19 11:37 Pulse Rhythm Regular 06/14/19 11:27 Pulse 116 H 06/13/19 23:30 Respiratory Rate 18 06/14/19 11:37 Respiratory Effort 06/14/19 11:27 Respiratory Depth Normal 06/14/19 11:27 Respiratory Pattern Normal 06/14/19 11:27 Blood Pressure 122/85 06/14/19 11:37 Blood Pressure Mean 70 06/13/19 22:30 Blood Pressure Position Sitting 06/13/19 17:37 Pulse Oximetry 92 L 06/14/19 11:37 Oxygen Delivery Method Room Air 06/14/19 11:37 Oxygen Flow Rate 0 06/14/19 11:37 Pain Level 0 06/14/19 04:01 Comment 06/14/19 03:36 Intake & Output 06/13/19 06/14/19 06/14/19 23:59 11:59 23:59 Intake Total 1000 / 1000 1240 / 2480 1240 / 2480 Output Total 2600 / 3900 1300 / 3900 Balance 1000 / 1000 -1360 / -1420 -60 / -1420 Weight 81.647 kg 81.647 kg Intake: IV 1000 / 1000 1000 / 2000 1000 / 2000 Oral 240 / 480 240 / 480 Output: Urine 2600 / 3900 1300 / 3900 Other: Urine Color Pale Pale Yellow Yellow Urine Appearance Clear Clear Urine Odor Normal Normal Comment pt missed hat. Voiding Methods Toilet Toilet Laboratory Results WBC 5.54 k/cumm (4.4-10.8) 06/14/19 07:06 RBC 3.85 m/cumm (4.50-6.00) L 06/14/19 07:06 Hgb 12.2 g/dL (13.5-17.5) L 06/14/19 07:06 Hct 36.3 % (40.0-50.0) L 06/14/19 07:06 MCV 94.3 fL (80-95) 06/14/19 07:06 MCH 31.7 pg (27.0-33.0) 06/14/19 07:06 MCHC 33.6 g/dL (32.0-36.0) 06/14/19 07:06 RDW 23.0 % (11.8-14.1) H 06/14/19 07:06 Plt Count 120 x1000/uL (130-400) L 06/14/19 07:06 MPV 10.2 fL (8.0-11.0) 06/14/19 07:06 Immature Gran % See Differential 06/13/19 19:35 58.0 06/13/19 19:35 18.0 06/13/19 19:35 Atypical Lymphs % 2 06/13/19 19:35 20.0 06/13/19 19:35 0.0 06/13/19 19:35 0.0 06/13/19 19:35 2.0 % 06/13/19 19:35 Absolute Neutrophils 3.97 k/cumm (1.2-6.7) 06/13/19 19:35 Absolute Lymphocytes 1.37 k/cumm (1.2-3.4) 06/13/19 19:35 Absolute Monocytes 1.37 k/cumm (0.11-0.7) H 06/13/19 19:35 Absolute Eosinophils 0.00 k/cumm (0.0-0.7) 06/13/19 19:35 Absolute Basophils 0.00 k/cumm (0.0-0.2) 06/13/19 19:35 Nucleated RBCs 4 /100WBC 06/13/19 19:35 Manual differential 06/13/19 19:35 RBC Morphology See below 06/13/19 19:35 Present 06/13/19 19:35 3+ 06/13/19 19:35 Present 06/13/19 19:35 2721 ng/mlFEU (<500) H 06/13/19 19:35 Sodium 136 mmol/L (136-145) 06/13/19 19:35 Potassium 3.8 mmol/L (3.5-5.1) 06/13/19 19:35 Chloride 99 mmol/L (98-107) 06/13/19 19:35 Carbon Dioxide 24.3 mmol/L (21.0-32.0) 06/13/19 19:35 12.7 mmol/L (3-11) H 06/13/19 19:35 BUN 17 mg/dL (7-18) 06/13/19 19:35 0.68 mg/dL (0.70-1.30) L 06/13/19 19:35 >= 60.00 (mL/min/1.73m2) 06/13/19 19:35 Glucose 100 mg/dL (70-100) 06/13/19 19:35 1.4 mmol/l (0.6-1.4) 06/13/19 19:35 Calcium 8.4 mg/dL (8.5-10.1) L 06/13/19 19:35 Magnesium 2.0 mg/dL (1.8-2.4) 06/13/19 19:35 0.4 mg/dL (0.2-1.0) 06/13/19 19:35 AST 46 U/L (15-37) H 06/13/19 19:35 ALT 147 U/L (12-78) H 06/13/19 19:35 219 U/L (46-116) H 06/13/19 19:35 6.7 g/dL (6.4-8.2) 06/13/19 19:35 3.5 g/dL (3.4-5.0) 06/13/19 19:35 Yellow (Yellow) 06/13/19 20:40 Clear (Clear) 06/13/19 20:40 5.0 (5-8) 06/13/19 20:40 Ur Specific [place] 1.020 (1.005-1.025) 06/13/19 20:40 Negative mg/dL (Negative) 06/13/19 20:40 Negative mg/dL (Negative) 06/13/19 20:40 Trace-lysed (Negative) H 06/13/19 20:40 Negative (Negative) 06/13/19 20:40 Negative (Negative) 06/13/19 20:40 0.2 EU/dL (Up TO 0.2) 06/13/19 20:40 Ur Leukocyte Esterase Negative (Negative) 06/13/19 20:40 0-2 (0-2) 06/13/19 20:40 0-2 HPF (0-5) 06/13/19 20:40 Ur Epithelial Cells Negative HPF (Negative) 06/13/19 20:40 Negative HPF (Negative) 06/13/19 20:40 Negative HPF (Negative) 06/13/19 20:40 Negative LPF (Negative) 06/13/19 20:40 Negative (Negative) 06/13/19 20:40 Negative (Negative) 06/13/19 20:40 Ur Culture Indicated? No 06/13/19 20:40 Negative mg/dL (Negative) 06/13/19 20:40
--- NOTE | 2019-06-14 18:32 | PDOC.CMIN ---
- If Service Date Differs Date of service: 06/14/19 Time of Service: 18:32 Care Management Initial Assess REASON FOR HOSPITALIZATION:: Fever PAST MEDICAL HISTORY/PAST SURGICAL HISTORY:: Patient has hx of synovial sarcoma with known metastasis to the pancreas, lungs and brain. Patient is currently undergoing chemotherapy, receives treatment every 21 days. Last received chemo one week ago. Additional surgical hx: LLE AKA. PREVIOUS FUNCTIONAL STATUS/SOCIAL/FAMILY SUPPORTS:: Radhames lives with his parents Tenisha and Boris in [place], [place]. He receives his care [facility] oncology. He has a eight year history of treatment for cancer and has been through several trials in [place]. His parents and tenriism provide support in the community. He does have a left leg prostetic and uses crutches for ambulation. His parents transport him to and from appointments. CURRENT FUNCTIONAL STATUS:: Radhames is alert he is able to answer questions, his Mom is present in the room and most of the questions during assessment. Radhames is able to discuss his fever and concerns r/t DVT. ADVANCE DIRECTIVES:: None on file - palliative care does meet with the patient and family. Has patient been provided with information about the portal?: Yes Did the patient sign up for the portal?: No CODE STATUS:: Full Code INSURANCE COVERAGE / FINANCIAL ISSUES:: MCR, [place], BC, BS CURRENT HOME/COMMUNITY SERVICES/EQUIPMENT:: Prostetic left, crutches, [facility], Palliative PRIMARY CARE PHYSICIAN:: - patient does not want to change to adult provider he does not want to have to get to know another provider. POTENTIAL DISCHARGE NEEDS:: Follow up with [facility] providers PATIENT/FAMILY EDUCATION NEEDS:: Discharge education, limitations and follow up plan of care including ask me three Parent should be present during review of discharged instructions. ANTICIPATED BARRIERS TO DISCHARGE:: None TRANSPORTATION:: Via private car with parents PLAN:: Radhames will be discharged when medically ready per provider. He will follow up with oncology as outpatient. He is currently receiving Lovenox for the DVT [facility] CM to continue to provide support discharged planning and disposition.
[2019-06-15 02:00] VITALS: TEMP 36.4
[2019-06-15] MEDS: Enoxaparin 80 MG/0.8 ML SYR SC ×2 (02:13→13:21)
[2019-06-15] MEDS: Normal Saline 1,000 ML 150 ML IV ×2 (04:57→11:20)
[2019-06-15 06:46] VITALS: BP 125/79; PULSE 100; RESP 18; TEMP 36.9; O2SAT 93
[2019-06-15 07:05] VITALS: BP 124/80; PULSE 103; RESP 16; TEMP 36.6; O2SAT 96
[2019-06-15 07:26] LABS: Abs Immature Grans 0.78 k/cumm (0.0-0.09); HCT 36.1 % (40.0-50.0); Mean Corp. HGB Concentration 33.2 g/dL (32.0-36.0); Mean Corpuscular Hemoglobin 31.7 pg (27.0-33.0); Mean Corpuscular Volume 95.5 fL (80-95); Platelet Count 125 x1000/uL (130-400); RBC 3.78 m/cumm (4.50-6.00); RBC Distribution Width 23.5 % (11.8-14.1); White Blood Cell Count 8.56 k/cumm (4.4-10.8)
[2019-06-15 07:43] LABS: ALT 111 U/L (12-78); AST 43 U/L (15-37); Albumin 3.2 g/dL (3.4-5.0); Alkaline Phosphatase 175 U/L (46-116); BUN 9 mg/dL (7-18); Bilirubin, Total 0.3 mg/dL (0.2-1.0); CREATININE 0.56 mg/dL (0.70-1.30); Calcium 8.6 mg/dL (8.5-10.1); Chloride 103 mmol/L (98-107); Glucose 81 mg/dL (70-100); Sodium 141 mmol/L (136-145); Total Protein 6.3 g/dL (6.4-8.2)
[2019-06-15] MEDS: Memantine 5 MG TAB 10 MG PO (08:40)
[2019-06-15] MEDS: Dexamethasone 1 MG TAB PO (08:40)
[2019-06-15 08:53] LABS: Absolute Eosinophil Count 0.09 k/cumm (0.0-0.7); Absolute Lymphocyte Count 0.86 k/cumm (1.2-3.4); Absolute Monocyte Count 0.68 k/cumm (0.11-0.7); Absolute Neutrophil Count 6.59 k/cumm (1.2-6.7)
[2019-06-15 08:54] LABS: Nucleated RBC 1 /100WBC
[2019-06-15 08:55] LABS: Anisocytosis 3+; Diff Comment Manual Differential; Macrocytosis 1+; Polychromasia Present
[2019-06-15 10:00] VITALS: TEMP 37.1
--- NOTE | 2019-06-15 12:51 | W.PM.DS.N ---
Date of service: 06/15/19 Time of Service: 12:51 DS: Diagnosis Discharge Diagnosis (1) Fever: Status: Acute (2) DVT (deep venous thrombosis): Status: Chronic (3) Synovial sarcoma: Status: Acute Discharge Plan Disposition Patient Disposition: HOME Condition: Stable Discharge Details Chief Complaint: Fever Clinical Impression: Tachycardia, Fever, Metastasis Reason For Visit: FEVER Admit Date/Time: 06/13/19 23:22 Admit Provider: Mahendra Steele Attending Provider: Mahendra Steele Primary Care Provider: Eliseo Barraza ED Provider: Prema Pope Hospital Course Hospital Course: Chief Complaint: Fever HPI: Unfortunate 24 year old man with a history of metastatic Sarcoma, admitted from [facility] Emergency Department on 06/13 with a diagnosis of Fever. 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 Patient has a left sided port in place as well. He presented to the ED with complaints of fevers ongoing for 1 day at home, but no localizing symptoms. Labwork was remarkable for a lack of leukocytosis, mild transaminitis present in the past, and a negative urinalysis. His CXR and CT of the chest were negative for infectious pathology. Case was discussed with Oncology at [facility], with decision to hold off on antibiotic therapy and await further testing and evaluation. Mr. Sommer was admitted and monitored - he has remained afebrile for over 24 hours, with a TMax of 37.7 last night. His tachycardia has improved as well. His blood culture remains negative, and his urine culture shows a likely contamination. A CT of the abdomen was obtained and showed evidence of DVTs in the common femoral, superficial, and deep femoral veins, but no acute intra-abdominal pathology. CT of the chest at time of admission did not find evidence of PE or infiltrates. The patient has no complaints this morning - he has remained hemodynamically stable, with improvement in tachycardia as well, and remains non-hypoxic. Hospital Course: (1) Fever: Exact etiology unknown: - No evidence of active infection by history or exam. - Urinalysis negative, and CXR without infection. Blood Cultures negative. - CT of the chest, a/p also negative for infection. - Patient has underlying metastatic malignancy, as well as new diagnosis fo DVT as potential etiology. - No role for ESR/CRP due to underlying malignancy, and Procalcitonin not indicated under these circumstances. Discussed with patient's Oncologist, Dr. Deo Garcia - etiology confirmed likely DVT in nature. Patient has been afebrile over 24 hours, remains hemodynamically stable, nontoxic, and is not neutropenic. Deemed safe for discharge, with close follow-up as outpatient. (2) DVT (deep venous thrombosis): New diagnosis of DVTs in patient with underlying malignancy and limited mobility. - CT of the chest negative for PE at time of admission. - Initiated on therapeutic Enoxaparin. Discussed with Oncology - patient's brain mets are not a contraindication for anticoagulation, and current plan was agreed upon. - Enoxaparin injection education undertaken as well while patient was hospitalized. (3) Synovial sarcoma: S/p LLE AKA. Metastatic, with known mets to the brain, lungs, spleen, pancreas, right gluteus, right lower chest paraspinal muscles. Currently under treatment with chemo, following with [facility] Oncology. Please note that patient has a Port in place, with imaging indicating tip of catheter ending within the right atrium. No evidence of abnormal heart beats, and EKG shows a sinus tachycardia without arrhythmias. This was communicated with Oncology at [facility] by telephone prior to patient's discharge. Home Meds and New Rx's Prescriptions: New enoxaparin [Lovenox] 80 mg/0.8 mL syringe 82 mg SC Q12H Qty: 8 RF: 0 Continued acetaminophen 500 mg tablet 1,000 mg PO TID PRNRF: 0 ondansetron HCl 8 mg tablet 8 mg PO BID RF: 0 fluconazole 200 mg Tablet 200 mg PO DAILY RF: 0 dexamethasone 1 mg Tablet 1 mg PO BID RF: 0 memantine 10 mg Tablet 10 mg PO BID RF: 0 Discharge Instructions Activity:: No Strenuous Activity Equipment/Supplies:: No Equipment Needed Diet:: As Tolerated Discharge Orders Discharge Orders: Discharge Order (Routine); Ordered 06/15/19 Ordered By: Alexander Calderon DS: Data Vitals/I&O Vitals and I&O: Vital Signs Temperature 37.1 C 06/15/19 10:00 Temperature Source Tympanic 06/15/19 10:00 Pulse 103 H 06/15/19 07:05 Pulse Rhythm Regular 06/15/19 07:45 Pulse 116 H 06/13/19 23:30 Respiratory Rate 16 06/15/19 07:05 Respiratory Effort Non-Labored 06/15/19 07:45 Respiratory Depth Normal 06/15/19 07:45 Respiratory Pattern Normal 06/15/19 07:45 Blood Pressure 124/80 06/15/19 07:05 Blood Pressure Mean 70 06/13/19 22:30 Blood Pressure Position Sitting 06/13/19 17:37 Pulse Oximetry 96 06/15/19 07:05 Oxygen Delivery Method Room Air 06/15/19 07:05 Oxygen Flow Rate 0 06/15/19 07:05 Pain Level 0 06/15/19 07:05 Comment 06/15/19 10:00 Intake & Output 06/14/19 06/15/19 06/15/19 23:59 11:59 23:59 Intake Total 2095 / 3335 1947.5 / 1947.5 Output Total 2700 / 5300 900 / 1600 700 / 1600 Balance -605 / -1965 1047.5 / 347.5 -700 / 347.5 Intake: IV 1855 / 2855 1947.5 / 1947.5 Oral 240 / 480 Output: Urine 2700 / 5300 900 / 1600 700 / 1600 Other: Urine Color Yellow Yellow Yellow Urine Appearance Clear Clear Clear Urine Odor Normal None None Stool Occult Blood Positive Stool Size Moderate Large Stool Characteristics Formed Soft Formed Voiding Methods Toilet Toilet Toilet Completed studies during hospitalization [Text1]: Exam(s) 06/13/2019 a RAD:XR chest 2V PA & lateral SYMPTOM/DIAGNOSIS: FEVER, H/O LUNG BX AND CARCINOMA PA AND LATERAL CHEST: There are no prior comparison exams. The patient has a history of synovial cell carcinoma. There are numerous pulmonary metastases. The lungs are not well inflated. No effusions are seen. The heart size is within normal limits. A port is noted over the left upper chest with the tip in the right atrium. IMPRESSION: Numerous bilateral pulmonary metastases. Exam(s) 06/13/[address]:CT chest PE CTA SYMPTOM/DIAGNOSIS: FEVER, TACHYCARDIAC, H/O CANCER PE CHEST CT: CT angiography was performed with multi slice acquisition and multi planar and 3D reconstruction. There are no pulmonary emboli or evidence of aortic dissection. There are innumerable masses seen throughout both lungs. The patient has a history of synovial cell carcinoma. The largest metastatic lesions are seen at the right lung base, measuring nearly 10 cm. in size. The masses show calcification. No pleural or pericardial effusions or adenopathy is seen. No pulmonary infiltrates or pulmonary edema is seen. The liver is enlarged and shows fatty infiltration. There are numerous low density lesions in the spleen, also consistent with metastases. There are numerous enhancing nodules seen around the pancreas. A PICC line is seen with the tip terminating in the upper right atrium. No bony metastases or compression fractures are seen. IMPRESSION: Innumerable lung metastases, greatest at the right lung base. There is also apparent splenic metastases and likely metastases around the spleen. --------- Exam(s) 06/14/[address]:CT abdomen & pelvis w SYMPTOM/DIAGNOSIS: PERSIST FEVER, H/O CA ABDOMEN AND PELVIC CT: There are no prior comparison exams. The patient apparently has a diagnosis of synovial cell carcinoma. Images were performed from the lung bases through the ischial tuberosities after IV and oral contrast. Innumerable masses are again noted at both lung bases containing calcifications, right greater than left. There is a metastatic lesion in the right paraspinal muscles, at the T 6-7 level. The liver is enlarged and shows diffuse fatty infiltration. No liver metastases are seen. The gallbladder is unremarkable. Splenic lesions consistent with metastases are better seen on the arterial phase images. There are multiple masses near the spleen and tail of the pancreas as well as an enhancing lesion in the head of the pancreas. The gallbladder, adrenals, kidneys, urinary bladder and prostate are unremarkable. There is no ascites. No adenopathy is seen. There is no bowel dilatation or inflammatory change. No bony metastases are visible. There is enhancing soft tissue nodule in the right gluteus jennifer. There is muscular asymmetry with muscular atrophy around the left hip. There is thrombus visible in the common femoral vein and extending into the deep and superficial femoral veins. No thrombus is seen more superiorly. There is a non obstructing stone at the lower pole of the right kidney. IMPRESSION: Multiple metastatic lesions around the pancreas. Soft tissue metastasis in the right gluteus as well as right lower chest paraspinal muscles. Deep venous thrombosis of the common femoral, superficial and deep femoral veins. Labs on day of discharge: Labs from last 24 hours 06/15/19 06/15/19 07:05 07:05 WBC 8.56 D RBC 3.78 L Hgb 12.0 L Hct 36.1 L MCV 95.5 H MCH 31.7 MCHC 33.2 RDW 23.5 H Plt Count 125 L MPV 10.0 Immature Gran % See Differential Neutrophils % 62.0 Band Neutrophils % 15.0 Lymphocytes % 10.0 Monocytes % 8.0 Eosinophils % 1.0 Basophils % 0.0 Metamyelocytes % 3.0 Myelocytes % 1.0 Absolute Neutrophils 6.59 Absolute Lymphocytes 0.86 L Absolute Monocytes 0.68 Absolute Eosinophils 0.09 Absolute Basophils 0.00 Nucleated RBCs 1 Differential Comment Manual differential Polychromasia Present Anisocytosis 3+ Macrocytosis 1+ Sodium 141 Potassium 4.0 Chloride 103 Carbon Dioxide 26.0 Anion Gap 12.0 H BUN 9 D Creatinine 0.56 L Estimated GFR/1.73 m2 >= 60.00 Glucose 81 Calcium 8.6 Magnesium 2.0 Total Bilirubin 0.3 AST 43 H ALT 111 H Alkaline Phosphatase 175 H Total Protein 6.3 L Albumin 3.2 L Preliminary micro results at discharge 06/13/19 20:40 Blood Culture - Preliminary Blood NO GROWTH 24 HOURS 06/13/19 19:35 Blood Culture - Preliminary Blood NO GROWTH 24 HOURS [facility] Medical History Achilles tendon contracture (Acute) Pulmonary nodules (Acute) Synovial sarcoma (Acute 12/12/14) Surgical History H/O arthroscopic knee surgery (Chronic) History of lung biopsy (Acute) Family History Mother Non-Hodgkin lymphoma in remission Social History Smoking/Tobacco Use Status: Never Drug use: Never Adopted: No Caregiver/Support person: Yes Foster care: No Household members: family Housing: house Number of Children: 0 Sexually active: No Do you think of yourself as: straight/heterosexual
[2019-06-15 13:59] VITALS: BP 124/83; PULSE 110; RESP 18; TEMP 37.4; O2SAT 94
--- NOTE | 2019-06-15 15:25 | CHAPLAIN ---
Radhames was sleeping when I visited and when I stopped in twice yesterday, but today I had a brief visit with his mom. She was pleasant but not interested in a longer conversation. According to Care Management notes, Radhames's family belongs to [employer] that is very supportive.
[2019-06-15] MEDS: Normal Saline Flush 10 ML SYR IVP (16:23)
[2019-06-15] MEDS: Heparin 500 UNITS/5 ML SYRINGE (16:23)
--- NOTE | 2019-06-15 19:26 | PDOC.CMDIS ---
- If Service Date Differs Date of service: 06/15/19 Time of Service: 19:26 LACE Index Scoring Tool - Questions: Length of Stay (in days): 3 Acuity (Admit via E.D.?): Yes Comorbidities: Any Tumor, Metastatic Solid Tumor Care Management Discharge Reason for Hospitalization: Fever Discharge Plan: Radhames is being dicharged home with Mom this evening. He is now on Lovenox BID injections for DVT in left femoral vein. He is tearful and scared when CM arrives to room. Radhames is able to talk about his condition and his goals. He states that he wants to be in remission, but feels his providers have told him this will not happen. He states he really just wants the cancer to stop growing. He is willing to follow up with again his mom is present and supportive. She is also in tears and states she just does not want to lose him. He declines Home health feels that he can and his Mom can do the injections. CM did provide LTM application and reviewed how to complete. CM provided support and listening to allow Radhames and his Mom Tara to process their feelings. CM provided contact information for follow up after discharge. CM contacted [facility] in [place] they have two days of Lovenox and will order the remaining doses. Radhames has follow up with [facility] in one week. Patient/Family Education Needs: Discharge edcuation limitations and follow up plan of care.
== END 2019-06-15 17:03 | disposition home or self-care (01) ==
LOC: ER 23:35 → MS 23:55
PROVIDERS: Admitting Provider General Practice; Emergency Provider Physician Assistant; PCP Pediatrics; Visit Provider Internal Medicine
DX: C49.9 Malignant neoplasm of connective and soft tissue, unspecified (principal); I82.412 Acute embolism and thrombosis of left femoral vein; C78.00 Secondary malignant neoplasm of unspecified lung; C78.89 Secondary malignant neoplasm of other digestive organs; R50.81 Fever presenting with conditions classified elsewhere; C79.31 Secondary malignant neoplasm of brain; C79.89 Secondary malignant neoplasm of other specified sites; Z89.612 Acquired absence of left leg above knee; Z45.2 Encounter for adjustment and management of vascular access device
CPT/HCPCS: 36415; 71275; 80053; 85027; 87040; 87252; 93005; 96360; 96361; 99222; 99233; 99239; 99285; 71046; 74177; 81003; 81015; 83605; 83735; 85025; 85379; 87086; 93010; 99217; 99220; 99226; G0378; J1650; J3490; J8540

== ENCOUNTER 2019-06-22 00:25 | Outpatient (RCR) | payer BC, MEDICARE, MEDICAID, SELFPAY ==
[2019-06-22] MEDS: Normal Saline Flush 10 ML SYR IVP (07:36)
[2019-06-22] MEDS: Heparin 500 UNITS/5 ML SYRINGE IV (07:37)
[2019-06-22 07:41] LABS: HCT 42.4 % (40.0-50.0); HGB 14.3 g/dL (13.5-17.5); Mean Corp. HGB Concentration 33.7 g/dL (32.0-36.0); Mean Corpuscular Hemoglobin 32.6 pg (27.0-33.0); Mean Corpuscular Volume 96.6 fL (80-95); Mean Platelet Volume 8.8 fL (8.0-11.0); Platelet Count 310 x1000/uL (130-400); RBC 4.39 m/cumm (4.50-6.00); RBC Distribution Width 23.3 % (11.8-14.1); White Blood Cell Count 10.47 k/cumm (4.4-10.8)
[2019-06-22 07:55] LABS: ALT 165 U/L (12-78); AST 59 U/L (15-37); Albumin 3.9 g/dL (3.4-5.0); Alkaline Phosphatase 193 U/L (46-116); Anion Gap 11.8 mmol/L (3-11); BUN 15 mg/dL (7-18); Bilirubin, Total 0.4 mg/dL (0.2-1.0); CO2 27.2 mmol/L (21.0-32.0); Calcium 9.4 mg/dL (8.5-10.1); Chloride 103 mmol/L (98-107); Glucose 109 mg/dL (70-100); Potassium 3.5 mmol/L (3.5-5.1); Sodium 142 mmol/L (136-145); Total Protein 7.5 g/dL (6.4-8.2)
[2019-06-22 07:58] LABS: Absolute Lymphocyte Count 1.68 k/cumm (1.2-3.4); Absolute Monocyte Count 0.21 k/cumm (0.11-0.7); Absolute Neutrophil Count 8.48 k/cumm (1.2-6.7); Atypical Lymphocytes % 2
[2019-06-22 07:59] LABS: Anisocytosis 3+; Diff Comment Manual Differential; Macrocytosis 1+; Nucleated RBC 2 /100WBC; Polychromasia Present; Spherocytes 1+
== END 2019-07-08 23:59 | disposition home or self-care (01) ==
LOC: INF 00:25
PROVIDERS: PCP Pediatrics; Visit Provider Internal Medicine Hematology & Oncology
DX: C49.22 Malignant neoplasm of connective and soft tissue of left lower limb, including hip (principal); Z45.2 Encounter for adjustment and management of vascular access device
CPT/HCPCS: 36591; 80053; 85025

== ENCOUNTER 2019-07-13 04:20 | Outpatient (RCR) | payer BC, MEDICARE, MEDICAID, SELFPAY ==
[2019-07-13 08:21] LABS: Abs Immature Grans 0.02 k/cumm (0.0-0.09); Absolute Basophil Count 0.05 k/cumm (0.0-0.2); Absolute Eosinophil Count 0.05 k/cumm (0.0-0.7); Absolute Lymphocyte Count 0.94 k/cumm (1.2-3.4); Absolute Monocyte Count 0.52 k/cumm (0.11-0.7); Absolute Neutrophil Count 3.36 k/cumm (1.2-6.7); HCT 40.8 % (40.0-50.0); HGB 13.7 g/dL (13.5-17.5); Immature Grans % 0.4; Mean Corp. HGB Concentration 33.6 g/dL (32.0-36.0); Mean Corpuscular Hemoglobin 32.9 pg (27.0-33.0); Mean Corpuscular Volume 98.1 fL (80-95); Mean Platelet Volume 8.8 fL (8.0-11.0); Monocytes % 10.5; Neutrophils % 68.1; Platelet Count 420 x1000/uL (130-400); RBC 4.16 m/cumm (4.50-6.00); RBC Distribution Width 17.6 % (11.8-14.1); White Blood Cell Count 4.94 k/cumm (4.4-10.8)
[2019-07-13] MEDS: Normal Saline Flush 10 ML SYR IVP (08:30)
[2019-07-13] MEDS: Heparin 500 UNITS/5 ML SYRINGE IV (08:30)
[2019-07-13 08:45] LABS: ALT 214 U/L (16-63); AST 81 U/L (15-37); Albumin 3.8 g/dL (3.4-5.0); Alkaline Phosphatase 156 U/L (46-116); Anion Gap 8.8 mmol/L (3-11); BUN 10 mg/dL (7-18); Bilirubin, Total 0.5 mg/dL (0.2-1.0); CO2 27.2 mmol/L (21.0-32.0); CREATININE 0.75 mg/dL (0.70-1.30); Calcium 9.4 mg/dL (8.5-10.1); Chloride 104 mmol/L (98-107); Glucose 96 mg/dL (70-100); Potassium 3.9 mmol/L (3.5-5.1); Sodium 140 mmol/L (136-145); Total Protein 7.8 g/dL (6.4-8.2)
== END 2019-08-07 23:59 | disposition home or self-care (01) ==
LOC: INF 04:20
PROVIDERS: PCP Pediatrics; Visit Provider Internal Medicine Hematology & Oncology
DX: C49.22 Malignant neoplasm of connective and soft tissue of left lower limb, including hip (principal); Z45.2 Encounter for adjustment and management of vascular access device
CPT/HCPCS: 36591; 80053; 85025